=== PATIENT | male | born 1965 | race Two or more races ===

== ENCOUNTER 2023-01-28 12:32 | Emergency (ER) | payer MEDICAID, OTHER ==
[~2023-01-28] VITALS: Ht 170.2 cm; Wt 81.8 kg
[2023-01-28 12:35] VITALS: BP 152/90; RESP 18; O2SAT 98
[2023-01-28 13:03] LABS: Basophils # (auto) 0 10 ^3/uL (0-0.2); Basophils % (auto) 0.5 % (0.0-2.0); Eosinophils # (auto) 0.1 10 ^3/uL (0-0.8); Eosinophils % (auto) 2.1 % (0.0-7.0); Hematocrit 45.3 % (41.0-53.0); Hemoglobin 15.3 g/dL (13.5-17.5); Lymphocytes # (auto) 2.5 10 ^3/uL (0.4-5.4); Lymphocytes % (auto) 40.3 % (10.0-50.0); Mean Corpuscular Hemoglobin 30.3 pg (28.0-32.0); Mean Corpuscular Hgb Conc. 33.8 g/dL (32.0-36.0); Mean Corpuscular Volume 89.6 fL (80.0-100.0); Monocytes # (auto) 0.4 10 ^3/uL (0-1.3); Monocytes % (auto) 6.8 % (0.0-12.0); Neutrophils # (auto) 3.1 10 ^3/uL (1.6-8.6); Neutrophils % (auto) 50.3 % (37.0-80.0); Nucleated Red Blood Cells % 0.3 %; Red Blood Cells 5.05 10^6/uL (4.5-5.90); Red Cell Distribution Width 12.3 % (11.8-14.3); White Blood Cell 6.1 10^3/uL (4.4-10.8)
[2023-01-28 13:11] LABS: Alanine Aminotransferase 23 U/L (7-40); Alkaline Phosphatase 89 U/L (46-116); Anion Gap 4 (5-15); Aspartate Aminotransferase 21 U/L (13-40); BUN/Creatinine Ratio 13.3 (10.0-20.0); Blood Urea Nitrogen 13 mg/dL (9-23); Carbon Dioxide 27 mmol/L (20-30); Chloride 99 mmol/L (98-107); Glucose 190 mg/dL (74-106); Magnesium 1.9 mg/dL (1.6-2.6); Potassium 4.7 mmol/L (3.5-5.1); Sodium 130 mmol/L (136-145)
[2023-01-28 13:12] LABS: Bilirubin, Total 0.9 mg/dL (0.2-1.0); Total Protein 7.1 g/dL (5.7-8.2)
[2023-01-28 13:13] LABS: Albumin 4.5 g/dL (3.2-4.8)
[2023-01-28 13:43] LABS: INR 1.02 (0.9-1.15); Partial Thromboplastin Time 28.8 SEC (24.5-34.5); Prothrombin Time 10.7 sec (9.3-11.8)
[2023-01-28 15:30] VITALS: PULSE 64
[2023-01-28] MEDS ORDERED: MAALOX PLUS or MAALOX 30 ML PO ONE (15:45)
[2023-01-28] MEDS ORDERED: MAALOX PLUS or MAALOX 30 ML ONE (15:56)
== END 2023-01-28 17:14 | disposition left against medical advice (07) ==
LOC: ER 12:32
DX: R10.13 Epigastric pain (principal); R07.9 Chest pain, unspecified; Z79.899 Other long term (current) drug therapy
CPT/HCPCS: 36415; 71046; 80053; 83735; 83880; 84484; 85025; 85379; 85610; 85730; 93005